=== PATIENT | male | born 1985 | race Two or more races ===

== ENCOUNTER 2021-08-06 05:47 | Day surgery (SDC) | payer OTHER ==
[~2021-08-06 05:47] MED LIST: LUMIGAN; NEXIUM40 M1 PO
[2021-08-06] MEDS ORDERED: PERCOCET 5-3251 EACH PO (11:11)
== END 2021-08-06 16:40 | disposition home or self-care (01) ==
LOC: CIR.AMB 05:47
PROVIDERS: ATTEND Surgery
DX: K60.3 Anal fistula (principal); Z20.822 Contact with and (suspected) exposure to COVID-19

== ENCOUNTER 2021-12-02 08:15 | Day surgery (SDC) | payer OTHER ==
[~2021-12-02 08:15] MED LIST changes: +PERCOCET 5-3251 EACH PO
[2021-12-02] MEDS ORDERED: PERCOCET 5-3251 EACH PO (14:09)
== END 2021-12-02 16:15 | disposition home or self-care (01) ==
LOC: CIR.AMB 08:15
PROVIDERS: ATTEND Surgery
DX: K60.3 Anal fistula (principal); K62.89 Other specified diseases of anus and rectum

== ENCOUNTER 2023-04-27 08:24 | Day surgery (SDC) | payer OTHER ==
[~2023-04-27] VITALS: Ht 175.3 cm; Wt 99.8 kg
[~2023-04-27 08:24] MED LIST changes: +PEPCID AC10 MG PO
[2023-04-27] MEDS ORDERED: OXYC1TAB9 PO (12:44)
== END 2023-04-27 17:10 | disposition home or self-care (01) ==
LOC: CIR.AMB 08:24
PROVIDERS: ATTEND Surgery
DX: K60.3 Anal fistula (principal); K64.4 Residual hemorrhoidal skin tags; K62.89 Other specified diseases of anus and rectum; K62.5 Hemorrhage of anus and rectum; Z20.822 Contact with and (suspected) exposure to COVID-19

== ENCOUNTER 2023-10-06 06:27 | Day surgery (SDC) | payer OTHER ==
[~2023-10-06 06:27] MED LIST changes: +OXYC1TAB9 PO
[2023-10-06] MEDS ORDERED: OXYC1TAB9 PO (08:47)
== END 2023-10-06 12:55 | disposition home or self-care (01) ==
LOC: CIR.AMB 06:27
PROVIDERS: ATTEND Surgery
DX: K60.3 Anal fistula (principal); K62.89 Other specified diseases of anus and rectum; K62.5 Hemorrhage of anus and rectum; R19.4 Change in bowel habit; Z20.822 Contact with and (suspected) exposure to COVID-19; Z88.6 Allergy status to analgesic agent

== ENCOUNTER 2023-10-11 13:10 | Inpatient (IN) | payer OTHER ==
[~2023-10-11] VITALS: Ht 175.3 cm; Wt 99.8 kg
[2023-10-11 15:59] LABS: HEMATOCRIT 47.7 % (39.0-48.0); HEMOGLOBIN 16.5 g/dL (13-16.00); MEAN CELL VOLUME 88.9 fL (80.0-100.00); MEAN CORPUSCULAR HEMOGLOBIN 30.7 pg (27.00-32.0); MEAN CORPUSCULAR HGB CONC 34.5 g/dl (32.0-36.0); PLATELET COUNT 328 K/uL (150-450); RED BLOOD COUNT 5.37 M/uL (4.00-6.00)
[2023-10-11 16:07] LABS: CALCIUM 10.3 mg/dL (8.5-10.1); CREATININE SERUM 1.06 mg/dL (0.70-1.30); GFR 77.38; POTASSIUM 3.89 mEq/L (3.5-5.1)
[2023-10-11 19:10] LABS: URINE APPEARANCE Clear; URINE BILIRRUBIN Negative (NEGATIVE); URINE BLOOD Negative; URINE COLOR Yellow; URINE GLUCOSE Negative (NEGATIVE); URINE LEUKOCYTE Negative; URINE NITRATE Negative; URINE PROTEIN Trace (NEGATIVE)
[2023-10-11 19:11] LABS: URINE BACTERIA 6.2 uL (0.0-1933); URINE EPITHELIAL CELLS 12.2 uL (0.0-38.8); URINE RBC 10.7 uL (0.0-20.8); URINE WBC 13.6 uL (0.0-23.2)
[2023-10-11 23:35] LABS: PARTIAL THROMBOPLASTIN TIME 25.4 SECONDS (22.0-34.0); PROTHROMBIN TIME 10.5 SECONDS (9.0-11.5)
[2023-10-13 07:56] LABS: ALBUMIN 3.5 gm/dL (3.4-5.0); BILIRUBIN TOTAL 1.22 mg/dL (0.3-1.2); CREATININE SERUM 0.98 mg/dL (0.70-1.30); GFR 84.71; GLOBULINA 3.1 G/DL (2.4-3.5); PHOSPHOROUS 3.4 mg/dL (2.5-4.9); POTASSIUM 4.51 mEq/L (3.5-5.1); TOTAL PROTEIN 6.6 gm/dL (6.4-8.2)
[2023-10-13 07:58] LABS: C-REACTIVE PROTEIN 2.25 MG/DL (0.00-0.29)
[2023-10-13 09:50] LABS: HEMATOCRIT 44.2 % (39.0-48.0); HEMOGLOBIN 15.2 g/dL (13-16.00); MEAN CELL VOLUME 87.9 fL (80.0-100.00); MEAN CORPUSCULAR HEMOGLOBIN 30.2 pg (27.00-32.0); MEAN CORPUSCULAR HGB CONC 34.3 g/dl (32.0-36.0); PLATELET COUNT 288 K/uL (150-450); RED BLOOD COUNT 5.03 M/uL (4.00-6.00)
[2023-10-14] MEDS ORDERED: TRAMADOL HCL50 MG PO (14:37)
== END 2023-10-15 07:18 | disposition home or self-care (01) | DRG 603 ==
LOC: ER 13:10 → SURG 21:54 → SURH 10-13 11:59
PROVIDERS: General Practice; Internal Medicine Infectious Disease; Nurse Practitioner Family; ADMIT Surgery; ATTEND Surgery
PROC: 0DJD8ZZ Inspection of Lower Intestinal Tract, Via Natural or Artificial Opening Endoscopic (ICD-10-PCS; 2023-10-13)
PROC: 3E0T3BZ Introduction of Anesthetic Agent into Peripheral Nerves and Plexi, Percutaneous Approach (ICD-10-PCS; principal; 2023-10-13 11:15)
DX: L02.215 Cutaneous abscess of perineum (principal); R65.10 Systemic inflammatory response syndrome (SIRS) of non-infectious origin without acute organ dysfunction; K60.5 Anorectal fistula